=== PATIENT | male | born 1965 | race Two or more races ===

== ENCOUNTER 2021-02-08 13:32 | Inpatient (IN) | payer MEDICAID, OTHER ==
[~2021-02-08] VITALS: Ht 165.1 cm; Wt 71.3 kg
[2021-02-08] MEDS ORDERED: methylPREDNISolone SOD SUCC 125 MG/2 ML VL IV ONE (14:00)
[2021-02-08 14:20] LABS: Basophils # (auto) 0.4 10 ^3/uL (0-0.2); Basophils % (auto) 5.5 % (0.0-2.0); Eosinophils # (auto) 0 10 ^3/uL (0-0.8); Eosinophils % (auto) 0.1 % (0.0-7.0); Hematocrit 42.7 % (41.0-53.0); Hemoglobin 14.7 g/dL (13.5-17.5); Lymphocytes # (auto) 0.7 10 ^3/uL (0.4-5.4); Lymphocytes % (auto) 8.8 % (10.0-50.0); Mean Corpuscular Hemoglobin 29.9 pg (28.0-32.0); Mean Corpuscular Hgb Conc. 34.5 g/dL (32.0-36.0); Mean Corpuscular Volume 86.7 fL (80.0-100.0); Monocytes # (auto) 0.5 10 ^3/uL (0-1.3); Neutrophils # (auto) 6.4 10 ^3/uL (1.6-8.6); Neutrophils % (auto) 79.6 % (37.0-80.0); Nucleated Red Blood Cells % 0.1 %; Red Blood Cells 4.93 10^6/uL (4.5-5.90)
[2021-02-08 14:57] LABS: Albumin 2.4 g/dL (3.4-5.0); Calcium 8.1 mg/dL (8.5-10.1); Potassium 4.1 mmol/L (3.5-5.1)
[2021-02-08 15:08] LABS: Bilirubin, Total 2.3 mg/dL (0.2-1.0); CRP High Sensitivity 15.2 mg/dL (< 0.3); Total Protein 6.8 g/dL (6.4-8.2)
[2021-02-08 15:13] LABS: BUN/Creatinine Ratio 24.7
[2021-02-08] MEDS ORDERED: REMDESIVIR PER PHARMACY 0 ML IV SCH ×2 (15:15→18:30)
[2021-02-08] MEDS ORDERED: AZITHROMYCIN 500MG/ 250ML 250 ML IV ONE (15:15)
[2021-02-08] MEDS ORDERED: DEXTROSE (50%) 50ML SYRG IV PRN (15:15)
[2021-02-08] MEDS ORDERED: NITROGLYCERIN 0.4 MG SL TAB SL PRN ×2 (15:15→18:30)
[2021-02-08] MEDS ORDERED: MORPHINE SULFATE INJECTION 2 MG/ML SYRG IV PRN ×3 (15:15→18:30)
[2021-02-08] MEDS ORDERED: REMDESIVIR 200 MG in NS 210ml LOADING DOSE ADULT IV ONE (17:00)
[2021-02-08] MEDS: ACCU-CHEK COMFORT CURVE STRIP VI SCH ×2 (17:20→22:16)
[2021-02-08] MEDS: InsuLIN REG 1unit/0.01ml Soln (100units/ml) SC SCH (17:21)
[2021-02-08 17:29] VITALS: BP 140/73
[2021-02-08] MEDS ORDERED: METF500S PO (17:58)
[2021-02-08] MEDS ORDERED: ENAL2.5T7 PO (17:58)
[2021-02-08] MEDS ORDERED: LORazepam 0.5 MG TAB PO PRN (18:30)
[2021-02-08] MEDS ORDERED: ALUM & MAG HYDROX-SIMETH LIQ(MAALOX) 30 ML PO PRN (18:30)
[2021-02-08] MEDS ORDERED: DOCUSATE SOD 100 MG CAP PO PRN (18:30)
[2021-02-08] MEDS ORDERED: HYDROcodone-ACET 5/325MG TAB PO PRN (18:30)
[2021-02-08] MEDS ORDERED: ACETAMINOPHEN 500 MG TAB PO PRN (18:30)
[2021-02-08] MEDS ORDERED: ONDANSETRON HCL 4 MG/2 ML VIAL IV PRN (18:30)
[2021-02-08 19:31] LABS: Urine Bacteria NONE SEEN /hpf (None Seen); Urine Blood Negative /uL (Negative); Urine Hyaline Cast MOD /lpf (0 - 2); Urine Mucus FEW (None Seen); Urine Specific Gravity 1.024 (1.001-1.035); Urine WBC 2 /hpf (0 - 3)
[2021-02-08 22:00] VITALS: BP 121/69
[2021-02-08] MEDS ORDERED: TOCILIZUMAB 400 MG in SODIUM CHL 0.9% 80 ML IV SCH (22:00)
[2021-02-08] MEDS ORDERED: InsuLIN REG 1unit/0.01ml Soln (100units/ml) SC SCH (22:00)
[2021-02-08] MEDS: ENOXAPARIN SOD 40 MG/0.4 ML SYRINGE SC SCH (22:16)
[2021-02-08] MEDS: FAMOTIDINE (10MG/ML) 2ML VL IV SCH (22:17)
[2021-02-08] MEDS: DOXYCYCLINE 100MG/250ML 250 ML IV SCH (22:17)
[2021-02-08] MEDS: ATORVASTATIN 20 MG TAB PO SCH (22:17)
[2021-02-08 23:30] LABS: Basophils # (auto) 0 10 ^3/uL (0-0.2); Basophils % (auto) 0.1 % (0.0-2.0); Eosinophils # (auto) 0 10 ^3/uL (0-0.8); Hematocrit 44.6 % (41.0-53.0); Hemoglobin 15.2 g/dL (13.5-17.5); Lymphocytes # (auto) 0.3 10 ^3/uL (0.4-5.4); Lymphocytes % (auto) 6.1 % (10.0-50.0); Mean Corpuscular Hemoglobin 29.9 pg (28.0-32.0); Mean Corpuscular Volume 87.9 fL (80.0-100.0); Monocytes # (auto) 0.2 10 ^3/uL (0-1.3); Monocytes % (auto) 3.9 % (0.0-12.0); Neutrophils # (auto) 4.9 10 ^3/uL (1.6-8.6); Neutrophils % (auto) 89.9 % (37.0-80.0); Red Blood Cells 5.07 10^6/uL (4.5-5.90); Red Cell Distribution Width 12.9 % (11.8-14.3); White Blood Cell 5.4 10^3/uL (4.4-10.8)
[2021-02-08 23:53] LABS: Albumin 2.2 g/dL (3.4-5.0); Calcium 8.2 mg/dL (8.5-10.1); Magnesium 2.9 mg/dL (1.6-2.6); Potassium 4.4 mmol/L (3.5-5.1)
[2021-02-09 00:07] LABS: Bilirubin, Total 1.9 mg/dL (0.2-1.0); CRP High Sensitivity 16.5 mg/dL (< 0.3); Total Protein 6.7 g/dL (6.4-8.2)
[2021-02-09] MEDS ORDERED: InsuLIN REG 1unit/0.01ml Soln (100units/ml) IV ONE (00:15)
[2021-02-09 00:21] LABS: BUN/Creatinine Ratio 27.1
[2021-02-09 00:30] LABS: Thyroid Stimulating Hormone 0.08 uIU/mL (0.358-3.74)
[2021-02-09 05:00] VITALS: BP 124/76
[2021-02-09] MEDS: FUROSEMIDE 20 MG/2 ML VIAL IV SCH ×2 (06:17→17:20)
[2021-02-09] MEDS: ACCU-CHEK COMFORT CURVE STRIP VI SCH ×5 (06:17→22:12)
[2021-02-09] MEDS: InsuLIN REG 1unit/0.01ml Soln (100units/ml) SC SCH ×5 (06:18→22:15)
[2021-02-09 06:38] LABS: Basophils # (auto) 0 10 ^3/uL (0-0.2); Basophils % (auto) 0.2 % (0.0-2.0); Eosinophils # (auto) 0 10 ^3/uL (0-0.8); Hematocrit 44.4 % (41.0-53.0); Hemoglobin 15.5 g/dL (13.5-17.5); Lymphocytes # (auto) 0.5 10 ^3/uL (0.4-5.4); Lymphocytes % (auto) 8.3 % (10.0-50.0); Mean Corpuscular Hemoglobin 30.3 pg (28.0-32.0); Mean Corpuscular Volume 86.7 fL (80.0-100.0); Monocytes # (auto) 0.6 10 ^3/uL (0-1.3); Neutrophils # (auto) 5.1 10 ^3/uL (1.6-8.6); Neutrophils % (auto) 81.5 % (37.0-80.0); Nucleated Red Blood Cells % 0.1 %; Red Blood Cells 5.12 10^6/uL (4.5-5.90); Red Cell Distribution Width 12.6 % (11.8-14.3); White Blood Cell 6.2 10^3/uL (4.4-10.8)
[2021-02-09 06:54] LABS: Potassium 3.8 mmol/L (3.5-5.1)
[2021-02-09 06:59] LABS: Albumin 2.3 g/dL (3.4-5.0); BUN/Creatinine Ratio 29.8; Calcium 8.5 mg/dL (8.5-10.1)
[2021-02-09 07:02] LABS: Bilirubin, Total 1.8 mg/dL (0.2-1.0)
[2021-02-09 08:00] VITALS: BP 126/81
[2021-02-09] MEDS: DexAMETHasone SOD PHOS 10MG/1ML VIAL INJ IV SCH (09:18)
[2021-02-09] MEDS: FAMOTIDINE (10MG/ML) 2ML VL IV SCH ×2 (09:18→22:11)
[2021-02-09] MEDS: ASPirin 81 mg TAB PO SCH (09:19)
[2021-02-09] MEDS: DOXYCYCLINE 100MG/250ML 250 ML IV SCH ×2 (09:19→22:11)
[2021-02-09] MEDS: ZINC SULFATE 220mg CAP or TAB PO SCH (09:19)
[2021-02-09] MEDS: BENAZEPRIL HCL 10 MG TAB PO SCH (09:19)
[2021-02-09] MEDS: CHOLECALCIFEROL (VITD3) 2,000 UNIT CAP/TAB PO SCH (09:20)
[2021-02-09] MEDS: IVERMECTIN 3 MG TAB PO SCH (09:20)
[2021-02-09] MEDS: ENOXAPARIN SOD 40 MG/0.4 ML SYRINGE SC SCH ×2 (09:20→22:12)
[2021-02-09] MEDS: ALBUTEROL SULF HFA 90MCG INH 200DOSE IN PRN ×2 (09:43→20:54)
[2021-02-09] MEDS: BUDESONIDE (INHALATION) 180 MCG IH IN SCH ×2 (09:43→20:53)
[2021-02-09] MEDS ORDERED: SODIUM CHLORIDE 0.9% 1,000 ML IV ONE ×2 (11:15→13:00)
[2021-02-09] MEDS ORDERED: DEXTROSE (50%) 50ML SYRG IV PRN (11:15)
[2021-02-09 11:48] LABS: Urine Bacteria NONE SEEN /hpf (None Seen); Urine Blood Negative /uL (Negative); Urine Hyaline Cast FEW /lpf (0 - 2); Urine Mucus FEW (None Seen); Urine Specific Gravity 1.023 (1.001-1.035); Urine WBC 2 /hpf (0 - 3)
[2021-02-09 12:02] LABS: Amphetamine Screen, Urine NEGATIVE (NEGATIVE); Barbiturate Scree,Urine NEGATIVE (NEGATIVE); Benzodiazephine Screen, Urine NEGATIVE (NEGATIVE); Cannabinoid Screen, Urine NEGATIVE (NEGATIVE); Cocaine Screen, Urine NEGATIVE (NEGATIVE); Opiate Scree,Urine NEGATIVE (NEGATIVE); Phencyclidine Screen, Urine NEGATIVE (NEGATIVE)
[2021-02-09 12:34] LABS: BUN/Creatinine Ratio 32.7; Calcium 7.8 mg/dL (8.5-10.1); Magnesium 2.5 mg/dL (1.6-2.6); Phosphorus 2.9 mg/dL (2.5-4.90); Potassium 3.6 mmol/L (3.5-5.1)
[2021-02-09 12:36] LABS: Bilirubin, Total 1.5 mg/dL (0.2-1.0); Total Protein 6.3 g/dL (6.4-8.2)
[2021-02-09] MEDS ORDERED: InsuLIN REG 1unit/0.01ml Soln (100units/ml) SC ONE (13:00)
[2021-02-09 13:07] VITALS: BP 99/56
[2021-02-09] MEDS: POTASSIUM CHL 20 Meq TABLET PO SCH ×2 (13:31→22:12)
[2021-02-09 14:13] VITALS: BP 99/56
[2021-02-09] MEDS: SODIUM CHLORIDE 0.9% 1,000 ML IV SCH (14:38)
[2021-02-09] MEDS: REMDESIVIR 100mg 100 MG in SODIUM CHL 0.9% 230 ML IV SCH (15:29)
[2021-02-09 17:17] VITALS: BP 107/61
[2021-02-09 22:00] VITALS: BP 118/64
[2021-02-09] MEDS: ATORVASTATIN 20 MG TAB PO SCH (22:12)
[2021-02-10 05:00] VITALS: BP 127/70
[2021-02-10] MEDS: FUROSEMIDE 20 MG/2 ML VIAL IV SCH ×2 (05:42→17:12)
[2021-02-10] MEDS: ACCU-CHEK COMFORT CURVE STRIP VI SCH ×4 (05:42→22:05)
[2021-02-10] MEDS: InsuLIN REG 1unit/0.01ml Soln (100units/ml) SC SCH ×4 (05:42→22:05)
[2021-02-10] MEDS: SODIUM CHLORIDE 0.9% 1,000 ML IV SCH ×2 (05:49→16:40)
[2021-02-10 05:57] LABS: Basophils # (auto) 0 10 ^3/uL (0-0.2); Basophils % (auto) 0.2 % (0.0-2.0); Eosinophils # (auto) 0 10 ^3/uL (0-0.8); Hemoglobin 13.6 g/dL (13.5-17.5); Lymphocytes # (auto) 0.6 10 ^3/uL (0.4-5.4); Lymphocytes % (auto) 5.9 % (10.0-50.0); Mean Corpuscular Hemoglobin 30.1 pg (28.0-32.0); Mean Corpuscular Hgb Conc. 34.9 g/dL (32.0-36.0); Mean Corpuscular Volume 86.2 fL (80.0-100.0); Monocytes # (auto) 0.7 10 ^3/uL (0-1.3); Monocytes % (auto) 6.2 % (0.0-12.0); Neutrophils # (auto) 9.6 10 ^3/uL (1.6-8.6); Neutrophils % (auto) 87.7 % (37.0-80.0); Red Blood Cells 4.53 10^6/uL (4.5-5.90); Red Cell Distribution Width 12.6 % (11.8-14.3)
[2021-02-10 06:09] LABS: Alanine Aminotransferase 30 U/L (16-61); Albumin 2.1 g/dL (3.4-5.0); Anion Gap 5 (5-15); Blood Urea Nitrogen 24 mg/dL (7-18); Calcium 7.8 mg/dL (8.5-10.1); Carbon Dioxide 26 mmol/L (21-32); Chloride 108 mmol/L (98-107); Glucose 232 mg/dL (74-106); Magnesium 2.5 mg/dL (1.6-2.6); Sodium 139 mmol/L (136-145)
[2021-02-10 06:15] LABS: Alkaline Phosphatase 68 U/L (45-117); Aspartate Aminotransferase 25 U/L (15-37); BUN/Creatinine Ratio 34.8; GFR African American 154 mL/min; GFR Non-African American 127 mL/min; Phosphorus 2.1 mg/dL (2.5-4.90)
[2021-02-10 06:22] LABS: INR 1.08 (0.9-1.15); Partial Thromboplastin Time 38.9 sec (23.6-33.0)
[2021-02-10] MEDS: ALBUTEROL SULF HFA 90MCG INH 200DOSE IN PRN (07:50)
[2021-02-10] MEDS: BUDESONIDE (INHALATION) 180 MCG IH IN SCH ×2 (07:50→21:45)
[2021-02-10 09:00] VITALS: BP 149/92
[2021-02-10] MEDS: DexAMETHasone SOD PHOS 10MG/1ML VIAL INJ IV SCH (09:29)
[2021-02-10] MEDS: DOXYCYCLINE 100MG/250ML 250 ML IV SCH ×2 (09:29→22:03)
[2021-02-10] MEDS: FAMOTIDINE (10MG/ML) 2ML VL IV SCH ×2 (09:29→22:03)
[2021-02-10] MEDS: ZINC SULFATE 220mg CAP or TAB PO SCH (09:30)
[2021-02-10] MEDS: ASPirin 81 mg TAB PO SCH (09:30)
[2021-02-10] MEDS: POTASSIUM CHL 20 Meq TABLET PO SCH ×2 (09:30→22:03)
[2021-02-10] MEDS: BENAZEPRIL HCL 10 MG TAB PO SCH (09:30)
[2021-02-10] MEDS: CHOLECALCIFEROL (VITD3) 2,000 UNIT CAP/TAB PO SCH (09:31)
[2021-02-10] MEDS: ENOXAPARIN SOD 40 MG/0.4 ML SYRINGE SC SCH ×2 (09:31→22:04)
[2021-02-10] MEDS: IVERMECTIN 3 MG TAB PO SCH (09:31)
[2021-02-10 13:00] VITALS: BP 109/69
[2021-02-10] MEDS: REMDESIVIR 100mg 100 MG in SODIUM CHL 0.9% 230 ML IV SCH (15:36)
[2021-02-10 16:50] VITALS: BP 115/62
[2021-02-10] MEDS: ATORVASTATIN 20 MG TAB PO SCH (22:03)
[2021-02-10] MEDS: INSULIN LANTUS (GLARGINE) 1 /0.01ml (100units/ml) SC SCH (22:05)
[2021-02-10 22:09] VITALS: BP 163/83
[2021-02-10] MEDS: hydrALAZINE HCL 20 MG/ML VL IV PRN (22:27)
[2021-02-11] MEDS: SODIUM CHLORIDE 0.9% 1,000 ML IV SCH (05:00)
[2021-02-11 05:09] VITALS: BP 143/76
[2021-02-11] MEDS: ACCU-CHEK COMFORT CURVE STRIP VI SCH ×3 (05:43→17:29)
[2021-02-11] MEDS: InsuLIN REG 1unit/0.01ml Soln (100units/ml) SC SCH ×3 (05:43→17:37)
[2021-02-11] MEDS: FUROSEMIDE 20 MG/2 ML VIAL IV SCH ×2 (05:44→17:45)
[2021-02-11] MEDS: ALBUTEROL SULF HFA 90MCG INH 200DOSE IN PRN ×2 (06:47→21:11)
[2021-02-11] MEDS: BUDESONIDE (INHALATION) 180 MCG IH IN SCH ×2 (06:47→21:11)
[2021-02-11 06:57] LABS: Basophils # (auto) 0 10 ^3/uL (0-0.2); Eosinophils # (auto) 0 10 ^3/uL (0-0.8); Hematocrit 43.4 % (41.0-53.0); Hemoglobin 15.2 g/dL (13.5-17.5); Lymphocytes # (auto) 0.9 10 ^3/uL (0.4-5.4); Lymphocytes % (auto) 8.9 % (10.0-50.0); Mean Corpuscular Hemoglobin 30.7 pg (28.0-32.0); Mean Corpuscular Hgb Conc. 35.1 g/dL (32.0-36.0); Mean Corpuscular Volume 87.3 fL (80.0-100.0); Monocytes # (auto) 0.3 10 ^3/uL (0-1.3); Monocytes % (auto) 2.9 % (0.0-12.0); Neutrophils # (auto) 9.3 10 ^3/uL (1.6-8.6); Neutrophils % (auto) 88.2 % (37.0-80.0); Nucleated Red Blood Cells % 0.1 %; Red Blood Cells 4.97 10^6/uL (4.5-5.90); Red Cell Distribution Width 13.1 % (11.8-14.3); White Blood Cell 10.5 10^3/uL (4.4-10.8)
[2021-02-11 07:13] LABS: INR 1.09 (0.9-1.15)
[2021-02-11 07:17] LABS: Chloride 105 mmol/L (98-107); Potassium 4.1 mmol/L (3.5-5.1); Sodium 138 mmol/L (136-145)
[2021-02-11 07:26] LABS: Alanine Aminotransferase 33 U/L (16-61); Albumin 2.5 g/dL (3.4-5.0); Alkaline Phosphatase 90 U/L (45-117); Anion Gap 4 (5-15); Aspartate Aminotransferase 32 U/L (15-37); BUN/Creatinine Ratio 32.8; Bilirubin, Total 1.1 mg/dL (0.2-1.0); Blood Urea Nitrogen 22 mg/dL (7-18); Calcium 8.4 mg/dL (8.5-10.1); Carbon Dioxide 29 mmol/L (21-32); GFR African American 159 mL/min; GFR Non-African American 131 mL/min; Glucose 112 mg/dL (74-106); Magnesium 2.3 mg/dL (1.6-2.6); Phosphorus 2.3 mg/dL (2.5-4.90); Total Protein 6.8 g/dL (6.4-8.2)
[2021-02-11 08:00] VITALS: BP 141/79
[2021-02-11] MEDS: FAMOTIDINE (10MG/ML) 2ML VL IV SCH ×2 (10:56→21:25)
[2021-02-11] MEDS: DexAMETHasone SOD PHOS 10MG/1ML VIAL INJ IV SCH (10:56)
[2021-02-11] MEDS: ASPirin 81 mg TAB PO SCH (10:57)
[2021-02-11] MEDS: DOXYCYCLINE 100MG/250ML 250 ML IV SCH (10:57)
[2021-02-11] MEDS: ZINC SULFATE 220mg CAP or TAB PO SCH (10:57)
[2021-02-11] MEDS: POTASSIUM CHL 20 Meq TABLET PO SCH ×2 (10:57→21:26)
[2021-02-11] MEDS: CHOLECALCIFEROL (VITD3) 2,000 UNIT CAP/TAB PO SCH (10:58)
[2021-02-11] MEDS: BENAZEPRIL HCL 10 MG TAB PO SCH (10:58)
[2021-02-11] MEDS: IVERMECTIN 3 MG TAB PO SCH (10:58)
[2021-02-11] MEDS: ENOXAPARIN SOD 40 MG/0.4 ML SYRINGE SC SCH ×2 (10:59→21:25)
[2021-02-11] MEDS ORDERED: levoFLOXacin 750MG 150 ML IV ONE (11:30)
[2021-02-11 12:00] VITALS: BP 130/77
[2021-02-11] MEDS: INSULIN LANTUS (GLARGINE) 1 /0.01ml (100units/ml) SC SCH ×2 (12:03→21:27)
[2021-02-11] MEDS ORDERED: guaiFENesin-DM 100/10mg/5ml SYR PO PRN (15:00)
[2021-02-11] MEDS: REMDESIVIR 100mg 100 MG in SODIUM CHL 0.9% 230 ML IV SCH (15:18)
[2021-02-11 16:00] VITALS: BP 145/71
[2021-02-11] MEDS: ATORVASTATIN 20 MG TAB PO SCH (21:26)
[2021-02-11 22:00] VITALS: BP 132/80
[2021-02-12] MEDS: ACCU-CHEK COMFORT CURVE STRIP VI SCH ×4 (00:39→17:44)
[2021-02-12] MEDS: InsuLIN REG 1unit/0.01ml Soln (100units/ml) SC SCH ×4 (00:41→17:43)
[2021-02-12 05:00] VITALS: BP 150/83
[2021-02-12] MEDS: FUROSEMIDE 20 MG/2 ML VIAL IV SCH ×2 (05:54→17:45)
[2021-02-12 06:07] LABS: Basophils # (auto) 0 10 ^3/uL (0-0.2); Basophils % (auto) 0.3 % (0.0-2.0); Eosinophils # (auto) 0 10 ^3/uL (0-0.8); Eosinophils % (auto) 0.2 % (0.0-7.0); Hematocrit 45.7 % (41.0-53.0); Hemoglobin 15.3 g/dL (13.5-17.5); Lymphocytes # (auto) 0.5 10 ^3/uL (0.4-5.4); Lymphocytes % (auto) 4.8 % (10.0-50.0); Mean Corpuscular Hemoglobin 29.9 pg (28.0-32.0); Mean Corpuscular Hgb Conc. 33.5 g/dL (32.0-36.0); Mean Corpuscular Volume 89.3 fL (80.0-100.0); Monocytes # (auto) 0.1 10 ^3/uL (0-1.3); Monocytes % (auto) 1.3 % (0.0-12.0); Neutrophils # (auto) 9.6 10 ^3/uL (1.6-8.6); Neutrophils % (auto) 93.4 % (37.0-80.0); Nucleated Red Blood Cells % 0.1 %; Red Blood Cells 5.12 10^6/uL (4.5-5.90); Red Cell Distribution Width 12.8 % (11.8-14.3); White Blood Cell 10.2 10^3/uL (4.4-10.8)
[2021-02-12 06:24] LABS: Albumin 2.2 g/dL (3.4-5.0); Calcium 8.8 mg/dL (8.5-10.1); Potassium 4.2 mmol/L (3.5-5.1)
[2021-02-12] MEDS: BUDESONIDE (INHALATION) 180 MCG IH IN SCH ×2 (06:28→21:45)
[2021-02-12] MEDS: ALBUTEROL SULF HFA 90MCG INH 200DOSE IN PRN ×2 (06:28→21:45)
[2021-02-12 06:29] LABS: BUN/Creatinine Ratio 33.3; Bilirubin, Total 1.2 mg/dL (0.2-1.0); Total Protein 6.8 g/dL (6.4-8.2)
[2021-02-12] MEDS: INSULIN LANTUS (GLARGINE) 1 /0.01ml (100units/ml) SC SCH ×2 (07:57→21:38)
[2021-02-12] MEDS: DexAMETHasone SOD PHOS 10MG/1ML VIAL INJ IV SCH (07:57)
[2021-02-12] MEDS: ZINC SULFATE 220mg CAP or TAB PO SCH (07:58)
[2021-02-12] MEDS: FAMOTIDINE (10MG/ML) 2ML VL IV SCH ×2 (07:58→21:27)
[2021-02-12] MEDS: levoFLOXacin 750MG 150 ML IV SCH (07:58)
[2021-02-12] MEDS: ASPirin 81 mg TAB PO SCH (07:58)
[2021-02-12] MEDS: BENAZEPRIL HCL 10 MG TAB PO SCH (07:59)
[2021-02-12] MEDS: POTASSIUM CHL 20 Meq TABLET PO SCH ×2 (07:59→21:27)
[2021-02-12] MEDS: IVERMECTIN 3 MG TAB PO SCH (07:59)
[2021-02-12] MEDS: ENOXAPARIN SOD 40 MG/0.4 ML SYRINGE SC SCH ×2 (08:00→21:27)
[2021-02-12] MEDS: CHOLECALCIFEROL (VITD3) 2,000 UNIT CAP/TAB PO SCH (08:00)
[2021-02-12 09:00] VITALS: BP 141/79
[2021-02-12 12:59] VITALS: BP 96/51
[2021-02-12] MEDS: REMDESIVIR 100mg 100 MG in SODIUM CHL 0.9% 230 ML IV SCH (16:15)
[2021-02-12 17:00] VITALS: BP 98/52
[2021-02-12] MEDS: ATORVASTATIN 20 MG TAB PO SCH (21:27)
[2021-02-12 22:00] VITALS: BP 110/66
[2021-02-13] VITALS (55 sets, daily range): BP systolic 51–179; BP diastolic 29–107
[2021-02-13] MEDS: InsuLIN REG 1unit/0.01ml Soln (100units/ml) SC SCH ×4 (00:09→23:56)
[2021-02-13] MEDS: ACCU-CHEK COMFORT CURVE STRIP VI SCH ×4 (00:11→23:54)
[2021-02-13] MEDS: FUROSEMIDE 20 MG/2 ML VIAL IV SCH (06:13)
[2021-02-13] MEDS: ALBUTEROL SULF HFA 90MCG INH 200DOSE IN PRN (08:11)
[2021-02-13] MEDS: BUDESONIDE (INHALATION) 180 MCG IH IN SCH ×2 (08:11→22:00)
[2021-02-13] MEDS: ASPirin 81 mg TAB PO SCH (09:20)
[2021-02-13] MEDS: ZINC SULFATE 220mg CAP or TAB PO SCH (09:20)
[2021-02-13] MEDS: IVERMECTIN 3 MG TAB PO SCH (09:20)
[2021-02-13] MEDS: FAMOTIDINE (10MG/ML) 2ML VL IV SCH ×2 (09:20→21:24)
[2021-02-13] MEDS: ENOXAPARIN SOD 40 MG/0.4 ML SYRINGE SC SCH ×2 (09:20→21:23)
[2021-02-13] MEDS: CHOLECALCIFEROL (VITD3) 2,000 UNIT CAP/TAB PO SCH (09:21)
[2021-02-13] MEDS: POTASSIUM CHL 20 Meq TABLET PO SCH ×2 (09:24→21:23)
[2021-02-13] MEDS: levoFLOXacin 750MG 150 ML IV SCH (09:49)
[2021-02-13] MEDS: INSULIN LANTUS (GLARGINE) 1 /0.01ml (100units/ml) SC SCH ×2 (09:49→22:01)
[2021-02-13] MEDS: DexAMETHasone SOD PHOS 10MG/1ML VIAL INJ IV SCH (09:49)
[2021-02-13] MEDS: ACETAMINOPHEN 325 MG TAB PO PRN (09:50)
[2021-02-13] MEDS: BENAZEPRIL HCL 10 MG TAB PO SCH (09:50)
[2021-02-13] MEDS ORDERED: ROCURONIUM 10MG/ML 10ML VIAL IV ONE (10:50)
[2021-02-13] MEDS ORDERED: ETOMIDATE (2MG/ML) 20ML VIAL IV ONE (10:50)
[2021-02-13] MEDS ORDERED: fentaNYL Drip 2500mCg/250mlNS 250 ML IV ONE (11:26)
[2021-02-13] MEDS ORDERED: PROPOFOL 100 ML IV ONE (11:27)
[2021-02-13] MEDS: MIDAZOLAM DRIP 50 mg/50mL 50 ML IV SCH (12:00)
[2021-02-13] MEDS: PROPOFOL 100 ML IV SCH (12:00)
[2021-02-13] MEDS: fentaNYL Drip 2500mCg/250mlNS 250 ML IV SCH ×2 (12:00→22:10)
[2021-02-13] MEDS ORDERED: NOREPINEPHRINE 8 MG/250ML KIT 250 ML IV ONE (12:57)
[2021-02-13 15:46] LABS: Calcium 7.9 mg/dL (8.5-10.1); Potassium 5.1 mmol/L (3.5-5.1)
[2021-02-13 15:50] LABS: BUN/Creatinine Ratio 29.7
[2021-02-13] MEDS: NOREPINEPHRINE 8 MG/250ML KIT 250 ML IV SCH (21:12)
[2021-02-13] MEDS: ATORVASTATIN 20 MG TAB PO SCH (21:23)
[2021-02-13] MEDS: SODIUM CHLOR 0.9% PF (SALINE LOCK) 10ML VIAL/SYR IV SCH (21:24)
[2021-02-14] VITALS (100 sets, daily range): BP systolic 83–129; BP diastolic 45–71
[2021-02-14 00:40] LABS: Potassium 5.3 mmol/L (3.5-5.1)
[2021-02-14 00:42] LABS: Magnesium 2.6 mg/dL (1.6-2.6)
[2021-02-14] MEDS: MIDAZOLAM DRIP 50 mg/50mL 50 ML IV SCH ×3 (01:19→18:33)
[2021-02-14 01:31] LABS: Basophils # (auto) 0 10 ^3/uL (0-0.2); Basophils % (auto) 0.1 % (0.0-2.0); Eosinophils # (auto) 0 10 ^3/uL (0-0.8); Hematocrit 41.4 % (41.0-53.0); Hemoglobin 14.2 g/dL (13.5-17.5); Lymphocytes # (auto) 0.2 10 ^3/uL (0.4-5.4); Mean Corpuscular Hemoglobin 30.8 pg (28.0-32.0); Mean Corpuscular Hgb Conc. 34.4 g/dL (32.0-36.0); Mean Corpuscular Volume 89.6 fL (80.0-100.0); Monocytes # (auto) 0.3 10 ^3/uL (0-1.3); White Blood Cell 12.6 10^3/uL (4.4-10.8)
[2021-02-14 01:33] LABS: Lymphocytes % (auto) 1.7 % (10.0-50.0); Monocytes % (auto) 2.5 % (0.0-12.0); Neutrophils % (auto) 95.7 % (37.0-80.0); Red Blood Cells 4.63 10^6/uL (4.5-5.90)
[2021-02-14 01:38] LABS: Anion Gap 11 (5-15); BUN/Creatinine Ratio 29.8; Blood Urea Nitrogen 50 mg/dL (7-18); Calcium 8.4 mg/dL (8.5-10.1); Carbon Dioxide 25 mmol/L (21-32); Chloride 99 mmol/L (98-107); GFR African American 55 mL/min; GFR Non-African American 45 mL/min; Glucose 296 mg/dL (74-106); Sodium 135 mmol/L (136-145)
[2021-02-14] MEDS: PROPOFOL 100 ML IV SCH ×3 (04:33→18:33)
[2021-02-14] MEDS: ACCU-CHEK COMFORT CURVE STRIP VI SCH ×3 (05:59→18:19)
[2021-02-14] MEDS: InsuLIN REG 1unit/0.01ml Soln (100units/ml) SC SCH ×3 (06:00→18:18)
[2021-02-14] MEDS ORDERED: SODIUM CHLORIDE 0.9% 500 ML IV ONE (09:00)
[2021-02-14] MEDS: ZINC SULFATE 220mg CAP or TAB PO SCH (10:03)
[2021-02-14] MEDS: DexAMETHasone SOD PHOS 10MG/1ML VIAL INJ IV SCH (10:04)
[2021-02-14] MEDS: ENOXAPARIN SOD 40 MG/0.4 ML SYRINGE SC SCH ×2 (10:04→21:21)
[2021-02-14] MEDS: FAMOTIDINE (10MG/ML) 2ML VL IV SCH ×2 (10:04→21:20)
[2021-02-14] MEDS: CHOLECALCIFEROL (VITD3) 2,000 UNIT CAP/TAB PO SCH (10:04)
[2021-02-14] MEDS: ASPirin 81 mg TAB PO SCH (10:07)
[2021-02-14 10:43] LABS: Basophils # (auto) 0 10 ^3/uL (0-0.2); Eosinophils # (auto) 0 10 ^3/uL (0-0.8); Eosinophils % (auto) 0.1 % (0.0-7.0); Hematocrit 36.8 % (41.0-53.0); Hemoglobin 12.9 g/dL (13.5-17.5); Lymphocytes # (auto) 0.4 10 ^3/uL (0.4-5.4); Lymphocytes % (auto) 3.2 % (10.0-50.0); Mean Corpuscular Hemoglobin 31.6 pg (28.0-32.0); Mean Corpuscular Volume 90.3 fL (80.0-100.0); Monocytes # (auto) 0.3 10 ^3/uL (0-1.3); Monocytes % (auto) 2.5 % (0.0-12.0); Neutrophils # (auto) 11.1 10 ^3/uL (1.6-8.6); Neutrophils % (auto) 94.2 % (37.0-80.0); Nucleated Red Blood Cells % 0.1 %; Red Blood Cells 4.08 10^6/uL (4.5-5.90); Red Cell Distribution Width 13.2 % (11.8-14.3); White Blood Cell 11.8 10^3/uL (4.4-10.8)
[2021-02-14] MEDS: SODIUM CHLORIDE 0.9% 1,000 ML IV SCH (13:53)
[2021-02-14] MEDS: SODIUM CHLOR 0.9% PF (SALINE LOCK) 10ML VIAL/SYR IV SCH ×2 (13:54→21:20)
[2021-02-14] MEDS: METOCLOPRAMIDE HCL 5MG/ml INJ 2ml VIAL IV SCH ×2 (13:57→21:20)
[2021-02-14] MEDS: MEROPENEM 1GM IVPB 100 ML IV SCH (13:58)
[2021-02-14] MEDS: INSULIN LANTUS (GLARGINE) 1 /0.01ml (100units/ml) SC SCH ×2 (14:01→21:49)
[2021-02-14 14:37] LABS: BUN/Creatinine Ratio 25.5; Potassium 5.3 mmol/L (3.5-5.1)
[2021-02-14 14:42] LABS: Urine Bacteria FEW /hpf (None Seen); Urine Blood TRACE /uL (Negative); Urine Mucus FEW (None Seen); Urine Specific Gravity 1.019 (1.001-1.035); Urine WBC 2 /hpf (0 - 3)
[2021-02-14 14:43] LABS: Urine Hyaline Cast FEW /lpf (0 - 2)
[2021-02-14] MEDS ORDERED: FUROSEMIDE 100 MG/10ML VIAL IV ONE (18:30)
[2021-02-14] MEDS: NOREPINEPHRINE 8 MG/250ML KIT 250 ML IV SCH (19:30)
[2021-02-14] MEDS: ACETAMINOPHEN 325 MG TAB PO PRN (20:26)
[2021-02-14] MEDS: fentaNYL Drip 2500mCg/250mlNS 250 ML IV SCH (21:20)
[2021-02-15] VITALS (107 sets, daily range): BP systolic 85–134; BP diastolic 42–68
[2021-02-15] MEDS: ACCU-CHEK COMFORT CURVE STRIP VI SCH ×5 (00:27→23:55)
[2021-02-15] MEDS: MIDAZOLAM DRIP 50 mg/50mL 50 ML IV SCH ×6 (00:53→20:06)
[2021-02-15] MEDS: SODIUM CHLORIDE 0.9% 1,000 ML IV SCH ×2 (02:08→20:06)
[2021-02-15] MEDS: MEROPENEM 1GM IVPB 100 ML IV SCH ×2 (02:10→14:00)
[2021-02-15] MEDS: NOREPINEPHRINE 8 MG/250ML KIT 250 ML IV SCH (02:57)
[2021-02-15 04:49] LABS: Basophils # (auto) 0 10 ^3/uL (0-0.2); Basophils % (auto) 0.2 % (0.0-2.0); Eosinophils # (auto) 0 10 ^3/uL (0-0.8); Eosinophils % (auto) 0.1 % (0.0-7.0); Hematocrit 38.5 % (41.0-53.0); Hemoglobin 12.8 g/dL (13.5-17.5); Lymphocytes # (auto) 0.2 10 ^3/uL (0.4-5.4); Lymphocytes % (auto) 1.7 % (10.0-50.0); Mean Corpuscular Hemoglobin 29.6 pg (28.0-32.0); Mean Corpuscular Hgb Conc. 33.3 g/dL (32.0-36.0); Mean Corpuscular Volume 89.1 fL (80.0-100.0); Monocytes # (auto) 0.3 10 ^3/uL (0-1.3); Monocytes % (auto) 2.1 % (0.0-12.0); Neutrophils # (auto) 11.8 10 ^3/uL (1.6-8.6); Neutrophils % (auto) 95.9 % (37.0-80.0); Red Blood Cells 4.32 10^6/uL (4.5-5.90); White Blood Cell 12.3 10^3/uL (4.4-10.8)
[2021-02-15 05:03] LABS: Calcium 8.1 mg/dL (8.5-10.1); Potassium 4.6 mmol/L (3.5-5.1)
[2021-02-15 05:05] LABS: BUN/Creatinine Ratio 25.2
[2021-02-15] MEDS: METOCLOPRAMIDE HCL 5MG/ml INJ 2ml VIAL IV SCH ×3 (05:23→21:40)
[2021-02-15] MEDS: InsuLIN REG 1unit/0.01ml Soln (100units/ml) SC SCH ×5 (05:46→23:56)
[2021-02-15] MEDS: PROPOFOL 100 ML IV SCH ×3 (07:13→20:55)
[2021-02-15] MEDS: ASPirin 81 mg TAB PO SCH (09:56)
[2021-02-15] MEDS: ZINC SULFATE 220mg CAP or TAB PO SCH (09:56)
[2021-02-15] MEDS: ENOXAPARIN SOD 40 MG/0.4 ML SYRINGE SC SCH ×2 (09:56→21:41)
[2021-02-15] MEDS: FAMOTIDINE (10MG/ML) 2ML VL IV SCH ×2 (09:56→21:41)
[2021-02-15] MEDS: DexAMETHasone SOD PHOS 10MG/1ML VIAL INJ IV SCH (09:56)
[2021-02-15] MEDS: CHOLECALCIFEROL (VITD3) 2,000 UNIT CAP/TAB PO SCH (09:57)
[2021-02-15] MEDS: INSULIN LANTUS (GLARGINE) 1 /0.01ml (100units/ml) SC SCH ×2 (09:58→22:23)
[2021-02-15] MEDS: SODIUM CHLOR 0.9% PF (SALINE LOCK) 10ML VIAL/SYR IV SCH ×2 (10:00→21:41)
[2021-02-15] MEDS: fentaNYL Drip 2500mCg/250mlNS 250 ML IV SCH ×2 (10:26→20:56)
[2021-02-15] MEDS: ACETAMINOPHEN 325 MG TAB PO PRN (15:01)
[2021-02-15] MEDS: TOCILIZUMAB 400 MG in SODIUM CHL 0.9% 80 ML IV SCH (18:03)
[2021-02-15] MEDS ORDERED: Glucerna 1.2 Cal 1Liter BOTTLE GT SCH (20:00)
[2021-02-16] VITALS (105 sets, daily range): BP systolic 70–164; BP diastolic 42–75
[2021-02-16] MEDS: MEROPENEM 1GM IVPB 100 ML IV SCH ×2 (01:52→13:36)
[2021-02-16 04:47] LABS: Basophils # (auto) 0.1 10 ^3/uL (0-0.2); Eosinophils # (auto) 0 10 ^3/uL (0-0.8); Hematocrit 35.6 % (41.0-53.0); Hemoglobin 11.8 g/dL (13.5-17.5); Lymphocytes # (auto) 0.2 10 ^3/uL (0.4-5.4); Lymphocytes % (auto) 2.7 % (10.0-50.0); Mean Corpuscular Hemoglobin 29.8 pg (28.0-32.0); Mean Corpuscular Hgb Conc. 33.1 g/dL (32.0-36.0); Mean Corpuscular Volume 90.1 fL (80.0-100.0); Monocytes # (auto) 0.2 10 ^3/uL (0-1.3); Monocytes % (auto) 2.2 % (0.0-12.0); Neutrophils # (auto) 6.7 10 ^3/uL (1.6-8.6); Neutrophils % (auto) 94.1 % (37.0-80.0); Red Blood Cells 3.95 10^6/uL (4.5-5.90); Red Cell Distribution Width 13.4 % (11.8-14.3); White Blood Cell 7.1 10^3/uL (4.4-10.8)
[2021-02-16 05:17] LABS: Potassium 5.3 mmol/L (3.5-5.1)
[2021-02-16 05:25] LABS: BUN/Creatinine Ratio 33.5; Calcium 8.4 mg/dL (8.5-10.1)
[2021-02-16] MEDS: METOCLOPRAMIDE HCL 5MG/ml INJ 2ml VIAL IV SCH ×3 (06:21→21:04)
[2021-02-16] MEDS: ACCU-CHEK COMFORT CURVE STRIP VI SCH ×3 (06:22→18:00)
[2021-02-16] MEDS: InsuLIN REG 1unit/0.01ml Soln (100units/ml) SC SCH ×3 (06:27→18:15)
[2021-02-16] MEDS: MIDAZOLAM DRIP 50 mg/50mL 50 ML IV SCH ×4 (08:04→18:00)
[2021-02-16] MEDS: ENOXAPARIN SOD 40 MG/0.4 ML SYRINGE SC SCH ×2 (09:56→21:05)
[2021-02-16] MEDS: FAMOTIDINE (10MG/ML) 2ML VL IV SCH ×2 (09:56→21:04)
[2021-02-16] MEDS: DexAMETHasone SOD PHOS 10MG/1ML VIAL INJ IV SCH (09:57)
[2021-02-16] MEDS: ZINC SULFATE 220mg CAP or TAB PO SCH (09:57)
[2021-02-16] MEDS: ASPirin 81 mg TAB PO SCH (09:57)
[2021-02-16] MEDS: SODIUM CHLOR 0.9% PF (SALINE LOCK) 10ML VIAL/SYR IV SCH ×2 (09:57→21:05)
[2021-02-16] MEDS: CHOLECALCIFEROL (VITD3) 2,000 UNIT CAP/TAB PO SCH (09:57)
[2021-02-16] MEDS: INSULIN LANTUS (GLARGINE) 1 /0.01ml (100units/ml) SC SCH ×2 (10:02→21:37)
[2021-02-16] MEDS ORDERED: FUROSEMIDE 40 MG/4 ML VIAL IV ONE (10:30)
[2021-02-16] MEDS: TOCILIZUMAB 400 MG in SODIUM CHL 0.9% 80 ML IV SCH (10:46)
[2021-02-16] MEDS: SODIUM CHLORIDE 0.9% 1,000 ML IV SCH (13:33)
[2021-02-16] MEDS: PROPOFOL 100 ML IV SCH (17:59)
[2021-02-16] MEDS: NOREPINEPHRINE 8 MG/250ML KIT 250 ML IV SCH (19:30)
[2021-02-17] VITALS (104 sets, daily range): BP systolic 83–145; BP diastolic 51–86
[2021-02-17] MEDS: ACCU-CHEK COMFORT CURVE STRIP VI SCH ×4 (00:48→18:00)
[2021-02-17] MEDS: InsuLIN REG 1unit/0.01ml Soln (100units/ml) SC SCH ×4 (00:52→18:00)
[2021-02-17] MEDS: MEROPENEM 1GM IVPB 100 ML IV SCH ×2 (01:53→13:54)
[2021-02-17 04:22] LABS: Basophils # (auto) 0 10 ^3/uL (0-0.2); Basophils % (auto) 0.4 % (0.0-2.0); Eosinophils # (auto) 0 10 ^3/uL (0-0.8); Eosinophils % (auto) 0.1 % (0.0-7.0); Hematocrit 37.6 % (41.0-53.0); Hemoglobin 12.2 g/dL (13.5-17.5); Lymphocytes # (auto) 0.4 10 ^3/uL (0.4-5.4); Lymphocytes % (auto) 4.5 % (10.0-50.0); Mean Corpuscular Hemoglobin 29.4 pg (28.0-32.0); Mean Corpuscular Hgb Conc. 32.5 g/dL (32.0-36.0); Mean Corpuscular Volume 90.4 fL (80.0-100.0); Monocytes # (auto) 0.4 10 ^3/uL (0-1.3); Monocytes % (auto) 4.4 % (0.0-12.0); Neutrophils # (auto) 7.2 10 ^3/uL (1.6-8.6); Neutrophils % (auto) 90.6 % (37.0-80.0); Red Blood Cells 4.16 10^6/uL (4.5-5.90); Red Cell Distribution Width 13.4 % (11.8-14.3); White Blood Cell 7.9 10^3/uL (4.4-10.8)
[2021-02-17 04:41] LABS: Calcium 8.8 mg/dL (8.5-10.1); Potassium 4.6 mmol/L (3.5-5.1)
[2021-02-17 04:44] LABS: BUN/Creatinine Ratio 47.3
[2021-02-17] MEDS: SODIUM CHLORIDE 0.9% 1,000 ML IV SCH ×2 (05:34→11:00)
[2021-02-17] MEDS: METOCLOPRAMIDE HCL 5MG/ml INJ 2ml VIAL IV SCH ×3 (05:35→22:22)
[2021-02-17] MEDS: SODIUM CHLOR 0.9% PF (SALINE LOCK) 10ML VIAL/SYR IV SCH ×2 (10:00→22:23)
[2021-02-17] MEDS: FAMOTIDINE (10MG/ML) 2ML VL IV SCH ×2 (10:00→22:22)
[2021-02-17] MEDS: INSULIN LANTUS (GLARGINE) 1 /0.01ml (100units/ml) SC SCH ×2 (10:00→22:00)
[2021-02-17] MEDS: DexAMETHasone SOD PHOS 10MG/1ML VIAL INJ IV SCH (10:00)
[2021-02-17] MEDS: ZINC SULFATE 220mg CAP or TAB PO SCH (10:01)
[2021-02-17] MEDS: ENOXAPARIN SOD 40 MG/0.4 ML SYRINGE SC SCH ×2 (10:01→22:22)
[2021-02-17] MEDS: ASPirin 81 mg TAB PO SCH (10:01)
[2021-02-17] MEDS: FUROSEMIDE 40 MG/4 ML VIAL IV SCH (10:01)
[2021-02-17] MEDS: CHOLECALCIFEROL (VITD3) 2,000 UNIT CAP/TAB PO SCH (10:01)
[2021-02-17] MEDS: MIDAZOLAM DRIP 50 mg/50mL 50 ML IV SCH ×4 (10:36→22:00)
[2021-02-17] MEDS: fentaNYL Drip 2500mCg/250mlNS 250 ML IV SCH ×2 (11:05→23:00)
[2021-02-17] MEDS: NOREPINEPHRINE 8 MG/250ML KIT 250 ML IV SCH (19:30)
[2021-02-18] VITALS (106 sets, daily range): BP systolic 82–165; BP diastolic 55–84
[2021-02-18] MEDS: ACCU-CHEK COMFORT CURVE STRIP VI SCH ×3 (00:22→12:12)
[2021-02-18] MEDS: InsuLIN REG 1unit/0.01ml Soln (100units/ml) SC SCH ×3 (00:25→12:00)
[2021-02-18] MEDS: MIDAZOLAM DRIP 50 mg/50mL 50 ML IV SCH ×6 (01:00→20:00)
[2021-02-18] MEDS: MEROPENEM 1GM IVPB 100 ML IV SCH ×2 (02:22→13:44)
[2021-02-18] MEDS: NOREPINEPHRINE 8 MG/250ML KIT 250 ML IV SCH (04:00)
[2021-02-18 04:59] LABS: Potassium 4.4 mmol/L (3.5-5.1)
[2021-02-18 05:07] LABS: BUN/Creatinine Ratio 59.6; Calcium 8.6 mg/dL (8.5-10.1)
[2021-02-18 05:12] LABS: Basophils # (auto) 0 10 ^3/uL (0-0.2); Basophils % (auto) 0.4 % (0.0-2.0); Eosinophils # (auto) 0 10 ^3/uL (0-0.8); Eosinophils % (auto) 0.4 % (0.0-7.0); Hematocrit 38.9 % (41.0-53.0); Lymphocytes # (auto) 0.7 10 ^3/uL (0.4-5.4); Lymphocytes % (auto) 9.6 % (10.0-50.0); Mean Corpuscular Hemoglobin 30.2 pg (28.0-32.0); Mean Corpuscular Hgb Conc. 33.3 g/dL (32.0-36.0); Mean Corpuscular Volume 90.6 fL (80.0-100.0); Monocytes # (auto) 0.4 10 ^3/uL (0-1.3); Monocytes % (auto) 5.4 % (0.0-12.0); Neutrophils # (auto) 6.1 10 ^3/uL (1.6-8.6); Neutrophils % (auto) 84.2 % (37.0-80.0); Nucleated Red Blood Cells % 0.1 %; Red Blood Cells 4.29 10^6/uL (4.5-5.90); Red Cell Distribution Width 13.3 % (11.8-14.3); White Blood Cell 7.3 10^3/uL (4.4-10.8)
[2021-02-18] MEDS: METOCLOPRAMIDE HCL 5MG/ml INJ 2ml VIAL IV SCH ×3 (05:59→21:50)
[2021-02-18] MEDS: SODIUM CHLORIDE 0.9% 1,000 ML IV SCH (08:30)
[2021-02-18] MEDS: DexAMETHasone SOD PHOS 10MG/1ML VIAL INJ IV SCH (10:02)
[2021-02-18] MEDS: ASPirin 81 mg TAB PO SCH (10:03)
[2021-02-18] MEDS: CHOLECALCIFEROL (VITD3) 2,000 UNIT CAP/TAB PO SCH (10:03)
[2021-02-18] MEDS: FAMOTIDINE (10MG/ML) 2ML VL IV SCH ×2 (10:03→21:50)
[2021-02-18] MEDS: SODIUM CHLOR 0.9% PF (SALINE LOCK) 10ML VIAL/SYR IV SCH ×2 (10:03→21:50)
[2021-02-18] MEDS: ZINC SULFATE 220mg CAP or TAB PO SCH (10:03)
[2021-02-18] MEDS: FUROSEMIDE 40 MG/4 ML VIAL IV SCH (10:03)
[2021-02-18] MEDS: ENOXAPARIN SOD 40 MG/0.4 ML SYRINGE SC SCH ×2 (10:04→21:50)
[2021-02-18] MEDS: fentaNYL Drip 2500mCg/250mlNS 250 ML IV SCH (11:30)
[2021-02-18] MEDS: PROPOFOL 100 ML IV SCH (11:30)
[2021-02-18] MEDS ORDERED: TPN PER PHARMACY 0 ML IV SCH (11:45)
[2021-02-18 12:03] LABS: Albumin 1.5 g/dL (3.4-5.0); Magnesium 2.8 mg/dL (1.6-2.6)
[2021-02-18 12:12] LABS: Bilirubin, Direct 0.2 mg/dL (0-0.2); Bilirubin, Total 0.7 mg/dL (0.2-1.0); Phosphorus 3.3 mg/dL (2.5-4.90); Pre Albumin 16.6 mg/dL (20.0-40.0)
[2021-02-18] MEDS: INSULIN LANTUS (GLARGINE) 1 /0.01ml (100units/ml) SC SCH ×2 (12:12→21:51)
[2021-02-18] MEDS ORDERED: DEXTROSE (50%) 50ML SYRG IV PRN (13:00)
[2021-02-18] MEDS: D5W 5% 1,000 ML IV SCH (13:44)
[2021-02-18] MEDS ORDERED: FREE WATER NG SCH (14:00)
[2021-02-18] MEDS ORDERED: ACCU-CHEK COMFORT CURVE STRIP VI SCH (18:00)
[2021-02-18] MEDS ORDERED: InsuLIN REG 1unit/0.01ml Soln (100units/ml) SC SCH (18:00)
[2021-02-18] MEDS ORDERED: TPN PER PHARMACY IV NR ×5 (20:00)
[2021-02-19] VITALS (104 sets, daily range): BP systolic 86–154; BP diastolic 52–87
[2021-02-19] MEDS ORDERED: DEXTROSE (50%) 50ML SYRG IV SCH
[2021-02-19] MEDS: fentaNYL Drip 2500mCg/250mlNS 250 ML IV SCH (01:30)
[2021-02-19] MEDS: MEROPENEM 1GM IVPB 100 ML IV SCH ×2 (02:00→14:24)
[2021-02-19] MEDS: NOREPINEPHRINE 8 MG/250ML KIT 250 ML IV SCH (04:00)
[2021-02-19] MEDS: MIDAZOLAM DRIP 50 mg/50mL 50 ML IV SCH ×7 (04:15→21:30)
[2021-02-19 04:32] LABS: Basophils # (auto) 0 10 ^3/uL (0-0.2); Basophils % (auto) 0.4 % (0.0-2.0); Eosinophils # (auto) 0 10 ^3/uL (0-0.8); Eosinophils % (auto) 0.6 % (0.0-7.0); Hemoglobin 12.6 g/dL (13.5-17.5); Lymphocytes # (auto) 0.7 10 ^3/uL (0.4-5.4); Lymphocytes % (auto) 11.3 % (10.0-50.0); Mean Corpuscular Hemoglobin 29.6 pg (28.0-32.0); Mean Corpuscular Hgb Conc. 32.4 g/dL (32.0-36.0); Mean Corpuscular Volume 91.2 fL (80.0-100.0); Monocytes # (auto) 0.4 10 ^3/uL (0-1.3); Neutrophils % (auto) 81.7 % (37.0-80.0); Nucleated Red Blood Cells % 0.1 %; Red Blood Cells 4.27 10^6/uL (4.5-5.90); Red Cell Distribution Width 13.7 % (11.8-14.3); White Blood Cell 6.2 10^3/uL (4.4-10.8)
[2021-02-19 04:52] LABS: Albumin 1.4 g/dL (3.4-5.0); BUN/Creatinine Ratio 70.2; Calcium 8.1 mg/dL (8.5-10.1); Potassium 4.3 mmol/L (3.5-5.1)
[2021-02-19 04:55] LABS: Bilirubin, Total 0.9 mg/dL (0.2-1.0); Total Protein 5.6 g/dL (6.4-8.2)
[2021-02-19] MEDS: ACCU-CHEK COMFORT CURVE STRIP VI SCH ×4 (05:33→17:51)
[2021-02-19] MEDS: METOCLOPRAMIDE HCL 5MG/ml INJ 2ml VIAL IV SCH ×3 (05:33→22:04)
[2021-02-19] MEDS: InsuLIN REG 1unit/0.01ml Soln (100units/ml) SC SCH ×4 (05:53→17:50)
[2021-02-19] MEDS: D5W 5% 1,000 ML IV SCH (09:15)
[2021-02-19 09:30] LABS: Magnesium 2.6 mg/dL (1.6-2.6); Phosphorus 3.5 mg/dL (2.5-4.90)
[2021-02-19] MEDS: ASPirin 81 mg TAB PO SCH (09:34)
[2021-02-19] MEDS: FAMOTIDINE (10MG/ML) 2ML VL IV SCH ×2 (09:34→22:04)
[2021-02-19] MEDS: SODIUM CHLOR 0.9% PF (SALINE LOCK) 10ML VIAL/SYR IV SCH ×2 (09:34→22:05)
[2021-02-19] MEDS: CHOLECALCIFEROL (VITD3) 2,000 UNIT CAP/TAB PO SCH (09:35)
[2021-02-19] MEDS: ZINC SULFATE 220mg CAP or TAB PO SCH (09:35)
[2021-02-19] MEDS: PROPOFOL 100 ML IV SCH (11:02)
[2021-02-19] MEDS: INSULIN LANTUS (GLARGINE) 1 /0.01ml (100units/ml) SC SCH ×2 (11:15→23:01)
[2021-02-19] MEDS: ENOXAPARIN SOD 40 MG/0.4 ML SYRINGE SC SCH ×2 (11:37→22:05)
[2021-02-19] MEDS ORDERED: TPN PER PHARMACY IV NR ×7 (20:00)
[2021-02-20] VITALS (104 sets, daily range): BP systolic 86–152; BP diastolic 49–88
[2021-02-20] MEDS: InsuLIN REG 1unit/0.01ml Soln (100units/ml) SC SCH ×4 (00:04→18:00)
[2021-02-20] MEDS: fentaNYL Drip 2500mCg/250mlNS 250 ML IV SCH ×2 (01:30→14:26)
[2021-02-20] MEDS: MIDAZOLAM DRIP 50 mg/50mL 50 ML IV SCH ×2 (01:30→08:36)
[2021-02-20] MEDS: MEROPENEM 1GM IVPB 100 ML IV SCH ×2 (02:00→14:19)
[2021-02-20 04:34] LABS: Basophils # (auto) 0 10 ^3/uL (0-0.2); Basophils % (auto) 0.4 % (0.0-2.0); Eosinophils # (auto) 0.1 10 ^3/uL (0-0.8); Eosinophils % (auto) 1.4 % (0.0-7.0); Hematocrit 39.4 % (41.0-53.0); Hemoglobin 12.7 g/dL (13.5-17.5); Lymphocytes # (auto) 0.8 10 ^3/uL (0.4-5.4); Lymphocytes % (auto) 11.8 % (10.0-50.0); Mean Corpuscular Hemoglobin 29.2 pg (28.0-32.0); Mean Corpuscular Hgb Conc. 32.2 g/dL (32.0-36.0); Mean Corpuscular Volume 90.6 fL (80.0-100.0); Monocytes # (auto) 0.2 10 ^3/uL (0-1.3); Monocytes % (auto) 3.5 % (0.0-12.0); Neutrophils # (auto) 5.5 10 ^3/uL (1.6-8.6); Neutrophils % (auto) 82.9 % (37.0-80.0); Red Blood Cells 4.35 10^6/uL (4.5-5.90); Red Cell Distribution Width 12.9 % (11.8-14.3); White Blood Cell 6.7 10^3/uL (4.4-10.8)
[2021-02-20 04:55] LABS: Potassium 3.5 mmol/L (3.5-5.1)
[2021-02-20 05:02] LABS: Albumin 1.5 g/dL (3.4-5.0); BUN/Creatinine Ratio 80.6; Bilirubin, Total 1.1 mg/dL (0.2-1.0); Calcium 7.7 mg/dL (8.5-10.1); Magnesium 2.2 mg/dL (1.6-2.6); Phosphorus 2.2 mg/dL (2.5-4.90); Total Protein 5.1 g/dL (6.4-8.2)
[2021-02-20] MEDS: METOCLOPRAMIDE HCL 5MG/ml INJ 2ml VIAL IV SCH ×3 (05:28→22:00)
[2021-02-20] MEDS: ACCU-CHEK COMFORT CURVE STRIP VI SCH ×4 (05:29→18:00)
[2021-02-20] MEDS ORDERED: POTASSIUM PHOSP 22MEQ(15MMOLE) in NS 100 ML IV ONE (08:45)
[2021-02-20] MEDS: INSULIN LANTUS (GLARGINE) 1 /0.01ml (100units/ml) SC SCH ×2 (10:00→22:00)
[2021-02-20] MEDS: FAMOTIDINE (10MG/ML) 2ML VL IV SCH ×2 (10:03→22:00)
[2021-02-20] MEDS: ZINC SULFATE 220mg CAP or TAB PO SCH (10:03)
[2021-02-20] MEDS: CHOLECALCIFEROL (VITD3) 2,000 UNIT CAP/TAB PO SCH (10:03)
[2021-02-20] MEDS: SODIUM CHLOR 0.9% PF (SALINE LOCK) 10ML VIAL/SYR IV SCH ×2 (10:03→22:00)
[2021-02-20] MEDS: ASPirin 81 mg TAB PO SCH (10:03)
[2021-02-20] MEDS: PROPOFOL 100 ML IV SCH (11:30)
[2021-02-20] MEDS: ENOXAPARIN SOD 60 MG/0.6 ML SYRINGE SC SCH ×2 (12:27→22:00)
[2021-02-20] MEDS ORDERED: FUROSEMIDE 20 MG/2 ML VIAL IV ONE (12:45)
[2021-02-20] MEDS: ACETAMINOPHEN 325 MG TAB PO PRN (18:52)
[2021-02-20] MEDS ORDERED: TPN PER PHARMACY IV NR ×7 (20:00)
[2021-02-21] VITALS (100 sets, daily range): BP systolic 71–197; BP diastolic 38–98
[2021-02-21] MEDS: ACCU-CHEK COMFORT CURVE STRIP VI SCH ×4 (00:24→12:00)
[2021-02-21] MEDS: hydrALAZINE HCL 20 MG/ML VL IV PRN (01:27)
[2021-02-21] MEDS: MEROPENEM 1GM IVPB 100 ML IV SCH ×2 (02:00→14:03)
[2021-02-21] MEDS: NOREPINEPHRINE 8 MG/250ML KIT 250 ML IV SCH ×2 (04:00→05:00)
[2021-02-21] MEDS: fentaNYL Drip 2500mCg/250mlNS 250 ML IV SCH ×2 (04:00→11:45)
[2021-02-21] MEDS: MIDAZOLAM DRIP 50 mg/50mL 50 ML IV SCH ×5 (04:00→22:44)
[2021-02-21 04:28] LABS: Basophils # (auto) 0 10 ^3/uL (0-0.2); Basophils % (auto) 0.4 % (0.0-2.0); Eosinophils # (auto) 0 10 ^3/uL (0-0.8); Eosinophils % (auto) 0.6 % (0.0-7.0); Hematocrit 40.5 % (41.0-53.0); Hemoglobin 13.5 g/dL (13.5-17.5); Lymphocytes # (auto) 0.7 10 ^3/uL (0.4-5.4); Mean Corpuscular Hgb Conc. 33.3 g/dL (32.0-36.0); Mean Corpuscular Volume 89.9 fL (80.0-100.0); Monocytes # (auto) 0.3 10 ^3/uL (0-1.3); Monocytes % (auto) 4.4 % (0.0-12.0); Neutrophils # (auto) 6.2 10 ^3/uL (1.6-8.6); Neutrophils % (auto) 84.6 % (37.0-80.0); Red Cell Distribution Width 13.2 % (11.8-14.3); White Blood Cell 7.3 10^3/uL (4.4-10.8)
[2021-02-21 04:54] LABS: Albumin 1.6 g/dL (3.4-5.0); Calcium 7.5 mg/dL (8.5-10.1); Potassium 3.8 mmol/L (3.5-5.1)
[2021-02-21 04:57] LABS: BUN/Creatinine Ratio 71.9; Bilirubin, Total 1.4 mg/dL (0.2-1.0); Phosphorus 2.7 mg/dL (2.5-4.90); Total Protein 5.4 g/dL (6.4-8.2)
[2021-02-21] MEDS: METOCLOPRAMIDE HCL 5MG/ml INJ 2ml VIAL IV SCH ×3 (06:00→22:00)
[2021-02-21] MEDS: InsuLIN REG 1unit/0.01ml Soln (100units/ml) SC SCH ×4 (06:00→23:58)
[2021-02-21] MEDS: ENOXAPARIN SOD 40 MG/0.4 ML SYRINGE SC SCH ×2 (09:55→22:00)
[2021-02-21] MEDS: CHOLECALCIFEROL (VITD3) 2,000 UNIT CAP/TAB PO SCH (09:55)
[2021-02-21] MEDS: ZINC SULFATE 220mg CAP or TAB PO SCH (09:55)
[2021-02-21] MEDS: ASPirin 81 mg TAB PO SCH (09:55)
[2021-02-21] MEDS: FAMOTIDINE (10MG/ML) 2ML VL IV SCH ×2 (09:55→22:00)
[2021-02-21] MEDS: SODIUM CHLOR 0.9% PF (SALINE LOCK) 10ML VIAL/SYR IV SCH ×2 (10:00→22:00)
[2021-02-21] MEDS: INSULIN LANTUS (GLARGINE) 1 /0.01ml (100units/ml) SC SCH ×2 (10:00→22:00)
[2021-02-21] MEDS ORDERED: FUROSEMIDE 20 MG/2 ML VIAL IV ONE ×2 (11:15→12:00)
[2021-02-21] MEDS: PROPOFOL 100 ML IV SCH (11:30)
[2021-02-21] MEDS ORDERED: TPN PER PHARMACY IV NR ×8 (20:00)
[2021-02-22] VITALS (106 sets, daily range): BP systolic 80–192; BP diastolic 50–97
[2021-02-22] MEDS: MEROPENEM 1GM IVPB 100 ML IV SCH (01:40)
[2021-02-22] MEDS: MIDAZOLAM DRIP 50 mg/50mL 50 ML IV SCH ×7 (02:00→22:30)
[2021-02-22 05:16] LABS: Albumin 1.2 g/dL (3.4-5.0); Magnesium 1.6 mg/dL (1.6-2.6); Potassium 3.2 mmol/L (3.5-5.1)
[2021-02-22 05:19] LABS: BUN/Creatinine Ratio 85.7; Bilirubin, Total 1.2 mg/dL (0.2-1.0); Phosphorus 3.6 mg/dL (2.5-4.90)
[2021-02-22 05:30] LABS: Calcium 5.8 mg/dL (8.5-10.1)
[2021-02-22] MEDS: METOCLOPRAMIDE HCL 5MG/ml INJ 2ml VIAL IV SCH ×3 (05:46→22:00)
[2021-02-22] MEDS: ACCU-CHEK COMFORT CURVE STRIP VI SCH ×4 (05:46→18:11)
[2021-02-22] MEDS: InsuLIN REG 1unit/0.01ml Soln (100units/ml) SC SCH ×3 (05:50→18:11)
[2021-02-22] MEDS: SODIUM CHLOR 0.9% PF (SALINE LOCK) 10ML VIAL/SYR IV SCH ×2 (10:31→22:00)
[2021-02-22] MEDS: FAMOTIDINE (10MG/ML) 2ML VL IV SCH ×2 (10:31→22:00)
[2021-02-22] MEDS: FUROSEMIDE 20 MG/2 ML VIAL IV SCH (10:31)
[2021-02-22] MEDS: ASPirin 81 mg TAB PO SCH (10:32)
[2021-02-22] MEDS: ZINC SULFATE 220mg CAP or TAB PO SCH (10:33)
[2021-02-22] MEDS: CHOLECALCIFEROL (VITD3) 2,000 UNIT CAP/TAB PO SCH (10:34)
[2021-02-22] MEDS: INSULIN LANTUS (GLARGINE) 1 /0.01ml (100units/ml) SC SCH ×2 (10:44→22:00)
[2021-02-22] MEDS: ENOXAPARIN SOD 40 MG/0.4 ML SYRINGE SC SCH ×2 (10:44→22:00)
[2021-02-22] MEDS: PROPOFOL 100 ML IV SCH (11:30)
[2021-02-22] MEDS: D5W 5% 1,000 ML IV SCH (12:23)
[2021-02-22] MEDS: MAGNESIUM SULFATE 1GM/100ML 100 ML IV SCH ×2 (12:23→13:53)
[2021-02-22] MEDS ORDERED: CALCIUM GLUC 1,000mg/50ml-NS 50 ML IV ONE (13:00)
[2021-02-22] MEDS ORDERED: POTASSIUM PHOSPHATE 22 MEQ in SODIUM CHL 0.9% 100 ML IV ONE (14:00)
[2021-02-22] MEDS: fentaNYL Drip 2500mCg/250mlNS 250 ML IV SCH ×2 (16:15)
[2021-02-22] MEDS ORDERED: TPN PER PHARMACY IV NR ×9 (20:00)
[2021-02-23] VITALS (102 sets, daily range): BP systolic 96–149; BP diastolic 50–81
[2021-02-23] MEDS: D5W 5% 1,000 ML IV SCH (00:05)
[2021-02-23] MEDS: fentaNYL Drip 2500mCg/250mlNS 250 ML IV SCH ×2 (02:33→15:30)
[2021-02-23 04:18] LABS: Albumin 1.6 g/dL (3.4-5.0); BUN/Creatinine Ratio 75.5; Calcium 7.2 mg/dL (8.5-10.1); Magnesium 2.1 mg/dL (1.6-2.6); Potassium 4.1 mmol/L (3.5-5.1)
[2021-02-23 04:21] LABS: Bilirubin, Total 1.4 mg/dL (0.2-1.0); Phosphorus 2.2 mg/dL (2.5-4.90)
[2021-02-23] MEDS: METOCLOPRAMIDE HCL 5MG/ml INJ 2ml VIAL IV SCH ×3 (06:00→22:29)
[2021-02-23] MEDS: InsuLIN REG 1unit/0.01ml Soln (100units/ml) SC SCH ×4 (06:00→18:15)
[2021-02-23] MEDS: ACCU-CHEK COMFORT CURVE STRIP VI SCH ×4 (06:00→18:15)
[2021-02-23] MEDS: MIDAZOLAM DRIP 50 mg/50mL 50 ML IV SCH ×5 (08:15→23:21)
[2021-02-23] MEDS: FUROSEMIDE 20 MG/2 ML VIAL IV SCH (09:55)
[2021-02-23] MEDS: SODIUM CHLOR 0.9% PF (SALINE LOCK) 10ML VIAL/SYR IV SCH ×2 (09:55→22:29)
[2021-02-23] MEDS: FAMOTIDINE (10MG/ML) 2ML VL IV SCH ×2 (09:55→22:28)
[2021-02-23] MEDS: ZINC SULFATE 220mg CAP or TAB PO SCH (09:56)
[2021-02-23] MEDS: CHOLECALCIFEROL (VITD3) 2,000 UNIT CAP/TAB PO SCH (09:56)
[2021-02-23] MEDS: ASPirin 81 mg TAB PO SCH (09:56)
[2021-02-23] MEDS: INSULIN LANTUS (GLARGINE) 1 /0.01ml (100units/ml) SC SCH ×2 (09:56→22:30)
[2021-02-23] MEDS: ENOXAPARIN SOD 40 MG/0.4 ML SYRINGE SC SCH ×2 (09:57→22:30)
[2021-02-23] MEDS: PROPOFOL 100 ML IV SCH (11:30)
[2021-02-23] MEDS ORDERED: POTASSIUM PHOSPHATE 22 MEQ in SODIUM CHL 0.9% 100 ML IV ONE (14:00)
[2021-02-23] MEDS: NOREPINEPHRINE 8 MG/250ML KIT 250 ML IV SCH (19:30)
[2021-02-23] MEDS: TPN PER PHARMACY IV NR ×9 (20:00)
[2021-02-24] VITALS (85 sets, daily range): BP systolic 61–177; BP diastolic 20–90
[2021-02-24] MEDS: MIDAZOLAM DRIP 50 mg/50mL 50 ML IV SCH ×4 (02:30→13:50)
[2021-02-24] MEDS: PROPOFOL 100 ML IV SCH ×3 (03:53→16:30)
[2021-02-24] MEDS: fentaNYL Drip 2500mCg/250mlNS 250 ML IV SCH ×2 (04:00→16:30)
[2021-02-24 05:00] LABS: Basophils # (auto) 0 10 ^3/uL (0-0.2); Basophils % (auto) 0.4 % (0.0-2.0); Eosinophils # (auto) 0.1 10 ^3/uL (0-0.8); Hemoglobin 12.9 g/dL (13.5-17.5); Lymphocytes # (auto) 0.6 10 ^3/uL (0.4-5.4); Lymphocytes % (auto) 5.6 % (10.0-50.0); Mean Corpuscular Hemoglobin 29.6 pg (28.0-32.0); Mean Corpuscular Hgb Conc. 33.2 g/dL (32.0-36.0); Mean Corpuscular Volume 89.4 fL (80.0-100.0); Monocytes # (auto) 0.7 10 ^3/uL (0-1.3); Monocytes % (auto) 6.2 % (0.0-12.0); Neutrophils # (auto) 9.5 10 ^3/uL (1.6-8.6); Neutrophils % (auto) 86.8 % (37.0-80.0); Nucleated Red Blood Cells % 0.1 %; Red Blood Cells 4.37 10^6/uL (4.5-5.90); Red Cell Distribution Width 13.2 % (11.8-14.3)
[2021-02-24 05:23] LABS: INR 1.55 (0.9-1.15); Partial Thromboplastin Time 44.7 sec (23.6-33.0)
[2021-02-24 05:55] LABS: Potassium 4.8 mmol/L (3.5-5.1)
[2021-02-24] MEDS: ACCU-CHEK COMFORT CURVE STRIP VI SCH ×4 (06:00→18:00)
[2021-02-24] MEDS: InsuLIN REG 1unit/0.01ml Soln (100units/ml) SC SCH ×4 (06:00→18:00)
[2021-02-24] MEDS: METOCLOPRAMIDE HCL 5MG/ml INJ 2ml VIAL IV SCH ×3 (06:00→21:42)
[2021-02-24 06:02] LABS: Albumin 1.8 g/dL (3.4-5.0); BUN/Creatinine Ratio 78.3; Bilirubin, Total 1.1 mg/dL (0.2-1.0); Calcium 7.5 mg/dL (8.5-10.1); Magnesium 2.1 mg/dL (1.6-2.6); Phosphorus 3.1 mg/dL (2.5-4.90); Total Protein 5.6 g/dL (6.4-8.2)
[2021-02-24] MEDS: FAMOTIDINE (10MG/ML) 2ML VL IV SCH ×2 (11:06→21:43)
[2021-02-24] MEDS: ASPirin 81 mg TAB PO SCH (11:06)
[2021-02-24] MEDS: FUROSEMIDE 20 MG/2 ML VIAL IV SCH (11:06)
[2021-02-24] MEDS: SODIUM CHLOR 0.9% PF (SALINE LOCK) 10ML VIAL/SYR IV SCH ×2 (11:06→21:42)
[2021-02-24] MEDS: ZINC SULFATE 220mg CAP or TAB PO SCH (11:07)
[2021-02-24] MEDS: ENOXAPARIN SOD 40 MG/0.4 ML SYRINGE SC SCH ×2 (11:07→21:42)
[2021-02-24] MEDS: CHOLECALCIFEROL (VITD3) 2,000 UNIT CAP/TAB PO SCH (11:07)
[2021-02-24] MEDS: INSULIN LANTUS (GLARGINE) 1 /0.01ml (100units/ml) SC SCH ×2 (11:33→22:00)
[2021-02-24] MEDS: PHENYLEPHRINE IV 250 ML IV SCH (18:10)
[2021-02-24] MEDS ORDERED: SODIUM BICARBONATE 8.4% INJ 50ML SYRINGE ONE (18:25)
[2021-02-24] MEDS ORDERED: SODIUM BICARBONATE 8.4 % INJ 50ML VIAL IV ONE (18:30)
[2021-02-24] MEDS: TPN PER PHARMACY IV NR ×17 (19:59→20:00)
[2021-02-24] MEDS: NOREPINEPHRINE 8 MG/250ML KIT 250 ML IV SCH (20:00)
[2021-02-25] VITALS (68 sets, daily range): BP systolic 68–157; BP diastolic 33–83
[2021-02-25] MEDS: PHENYLEPHRINE IV 250 ML IV SCH ×3 (02:05→10:45)
[2021-02-25 02:13] LABS: Basophils # (auto) 0.2 10 ^3/uL (0-0.2); Basophils % (auto) 1.2 % (0.0-2.0); Eosinophils # (auto) 0 10 ^3/uL (0-0.8); Eosinophils % (auto) 0.1 % (0.0-7.0); Hematocrit 32.6 % (41.0-53.0); Hemoglobin 11.2 g/dL (13.5-17.5); Lymphocytes # (auto) 0.9 10 ^3/uL (0.4-5.4); Lymphocytes % (auto) 5.3 % (10.0-50.0); Mean Corpuscular Hgb Conc. 34.2 g/dL (32.0-36.0); Mean Corpuscular Volume 90.6 fL (80.0-100.0); Monocytes # (auto) 0.5 10 ^3/uL (0-1.3); Monocytes % (auto) 2.8 % (0.0-12.0); Neutrophils % (auto) 90.6 % (37.0-80.0); Red Cell Distribution Width 13.4 % (11.8-14.3); White Blood Cell 17.7 10^3/uL (4.4-10.8)
[2021-02-25 02:33] LABS: Albumin 1.2 g/dL (3.4-5.0); Magnesium 1.9 mg/dL (1.6-2.6); Potassium 4.7 mmol/L (3.5-5.1)
[2021-02-25 02:36] LABS: BUN/Creatinine Ratio 69.5; Phosphorus 3.6 mg/dL (2.5-4.90)
[2021-02-25 02:41] LABS: Bilirubin, Total 1.1 mg/dL (0.2-1.0); Total Protein 4.4 g/dL (6.4-8.2)
[2021-02-25 02:51] LABS: Calcium 5.7 mg/dL (8.5-10.1)
[2021-02-25] MEDS ORDERED: CALCIUM GLUC 1,000mg/50ml-NS 100 ML IV ONE (03:54)
[2021-02-25] MEDS ORDERED: CALCIUM GLUC 1,000mg/50ml-NS 50 ML IV ONE ×2 (04:00)
[2021-02-25 05:32] LABS: INR 1.46 (0.9-1.15); Partial Thromboplastin Time 42.1 sec (23.6-33.0)
[2021-02-25] MEDS: ACCU-CHEK COMFORT CURVE STRIP VI SCH ×5 (05:43→23:40)
[2021-02-25] MEDS: METOCLOPRAMIDE HCL 5MG/ml INJ 2ml VIAL IV SCH ×3 (05:43→21:27)
[2021-02-25 05:44] LABS: Pre Albumin 14.3 mg/dL (20.0-40.0)
[2021-02-25] MEDS: InsuLIN REG 1unit/0.01ml Soln (100units/ml) SC SCH ×5 (05:44→23:41)
[2021-02-25] MEDS: PROPOFOL 100 ML IV SCH ×3 (09:00→15:23)
[2021-02-25] MEDS: MIDAZOLAM DRIP 50 mg/50mL 50 ML IV SCH ×3 (09:30→17:09)
[2021-02-25] MEDS: ASPirin 81 mg TAB PO SCH (10:00)
[2021-02-25] MEDS: CHOLECALCIFEROL (VITD3) 2,000 UNIT CAP/TAB PO SCH (10:00)
[2021-02-25] MEDS: ZINC SULFATE 220mg CAP or TAB PO SCH (10:00)
[2021-02-25] MEDS: FAMOTIDINE (10MG/ML) 2ML VL IV SCH ×2 (10:09→21:27)
[2021-02-25] MEDS: FUROSEMIDE 20 MG/2 ML VIAL IV SCH (10:09)
[2021-02-25] MEDS: SODIUM CHLOR 0.9% PF (SALINE LOCK) 10ML VIAL/SYR IV SCH ×2 (10:09→21:26)
[2021-02-25] MEDS: ENOXAPARIN SOD 40 MG/0.4 ML SYRINGE SC SCH (10:10)
[2021-02-25] MEDS ORDERED: PHENYLEPHRINE INJ 80 MG in SODIUM CHL 0.9% 242 ML IV SCH (10:45)
[2021-02-25] MEDS: fentaNYL Drip 2500mCg/250mlNS 250 ML IV SCH ×2 (11:30→15:11)
[2021-02-25] MEDS ORDERED: levoFLOXacin 750MG 150 ML IV ONE (12:30)
[2021-02-25] MEDS: INSULIN LANTUS (GLARGINE) 1 /0.01ml (100units/ml) SC SCH ×2 (12:45→21:24)
[2021-02-25 14:23] LABS: Lactic Acid w/Reflex 5.7 mmol/L (0.4-2.0)
[2021-02-25 15:18] LABS: CRP High Sensitivity 2.99 mg/dL (< 0.3)
[2021-02-25] MEDS: NOREPINEPHRINE 8 MG/250ML KIT 250 ML IV SCH ×2 (15:55→19:30)
[2021-02-25] MEDS: TPN PER PHARMACY IV NR ×8 (19:38)
[2021-02-25] MEDS ORDERED: TPN PER PHARMACY IV NR ×9 (20:00)
[2021-02-25] MEDS ORDERED: ENOXAPARIN SOD 100 MG/1 ML SYRINGE SC SCH (22:00)
[2021-02-26] VITALS (13 sets, daily range): BP systolic 91–160; BP diastolic 12–71
[2021-02-26] MEDS ORDERED: VASOPRESSIN 50 UNITS in D5W 5% 247.5 ML IV SCH (00:45)
[2021-02-26] MEDS ORDERED: VASOPRESSIN 20 UNIT/ML ONE ×2 (01:25→01:32)
[2021-02-26 02:20] LABS: Hematocrit 36.9 % (41.0-53.0); Hemoglobin 12.4 g/dL (13.5-17.5); Mean Corpuscular Hemoglobin 30.5 pg (28.0-32.0); Mean Corpuscular Hgb Conc. 33.7 g/dL (32.0-36.0); Mean Corpuscular Volume 90.4 fL (80.0-100.0); Red Blood Cells 4.08 10^6/uL (4.5-5.90); Red Cell Distribution Width 13.5 % (11.8-14.3); White Blood Cell 15.7 10^3/uL (4.4-10.8)
[2021-02-26 02:36] LABS: Basophils % (manual) 0 (0.0-2.0); Blast Cells 0; Metamyelocytes % 0; Promyelocytes % 0; Reactive Lymphocytes 0
[2021-02-26 02:40] LABS: Potassium 5.4 mmol/L (3.5-5.1)
[2021-02-26 02:44] LABS: Albumin 1.5 g/dL (3.4-5.0); BUN/Creatinine Ratio 56.7; Magnesium 2.4 mg/dL (1.6-2.6)
[2021-02-26 03:06] LABS: Bilirubin, Total 0.8 mg/dL (0.2-1.0); Total Protein 5.1 g/dL (6.4-8.2)
[2021-02-26 03:25] LABS: Band Neutrophils % (manual) 12; Eosinophils % (manual) 1 (0-7); Lymphocytes % (manual) 11 (10.0-50.0); Monocytes % (manual) 11 (0-12); Myelocytes % 5
[2021-02-26] MEDS: ACCU-CHEK COMFORT CURVE STRIP VI SCH (05:01)
[2021-02-26] MEDS: InsuLIN REG 1unit/0.01ml Soln (100units/ml) SC SCH (05:02)
[2021-02-26] MEDS: METOCLOPRAMIDE HCL 5MG/ml INJ 2ml VIAL IV SCH (05:06)
[2021-02-26] MEDS ORDERED: AMINO ACID INFUSION IN D10W 1,000 ML IV NR (09:00)
[2021-02-26] MEDS: PROPOFOL 100 ML IV SCH (09:30)
[2021-02-26] MEDS ORDERED: EPINEPHrine HCL 250 ML IV ONE (09:45)
[2021-02-26] MEDS ORDERED: levoFLOXacin 750MG 150 ML IV SCH (10:00)
[2021-02-26] MEDS: MIDAZOLAM DRIP 50 mg/50mL 50 ML IV SCH (10:00)
[2021-02-26] MEDS ORDERED: PANTOPRAZOLE 40 MG/10 ML VIAL INJ IV SCH (10:00)
[2021-02-26] MEDS: NOREPINEPHRINE 8 MG/250ML KIT 250 ML IV SCH (11:05)
[2021-02-26] MEDS ORDERED: EPINEPHrine HCL 1 MG/10 ML SYRG IV ONE (11:21)
[2021-02-26] MEDS ORDERED: SODIUM BICARBONATE 8.4% INJ 50ML SYRINGE IV ONE (11:21)
[2021-02-26] MEDS ORDERED: TPN PER PHARMACY IV NR ×7 (20:00)
== END 2021-02-26 11:22 | DRG 720 ==
LOC: EDBD 13:32 → ER 13:32 → TELE 15:13 → TELE-EAST 17:00 → EAST 02-12 15:45 → DOU IN ADS 02-12 19:01 → EAST 02-12 19:07 → DOU IN ADS 02-12 19:09 → TELE-E-ADS 02-13 02:33 → EAST 02-13 07:55 → DOU IN ADS 02-13 07:58 → ICU WEST 02-13 11:20
PROVIDERS: ADMIT Hospitalist; ATTEND Internal Medicine Pulmonary Disease
PROC: XW033E5 Introduction of Remdesivir Anti-infective into Peripheral Vein, Percutaneous Approach, New Technology Group 5 (ICD-10-PCS; 2021-02-08)
PROC: 5A1955Z Respiratory Ventilation, Greater than 96 Consecutive Hours (ICD-10-PCS; principal; 2021-02-13)
PROC: 0BH17EZ Insertion of Endotracheal Airway into Trachea, Via Natural or Artificial Opening (ICD-10-PCS; 2021-02-13)
PROC: 02HV33Z Insertion of Infusion Device into Superior Vena Cava, Percutaneous Approach (ICD-10-PCS; 2021-02-13)
PROC: B548ZZA Ultrasonography of Superior Vena Cava, Guidance (ICD-10-PCS; 2021-02-13)
PROC: XW033H5 Introduction of Tocilizumab into Peripheral Vein, Percutaneous Approach, New Technology Group 5 (ICD-10-PCS; 2021-02-15)
PROC: 5A12012 Performance of Cardiac Output, Single, Manual (ICD-10-PCS; 2021-02-26)
DX: A41.9 Sepsis, unspecified organism (principal); N17.0 Acute kidney failure with tubular necrosis; J96.01 Acute respiratory failure with hypoxia; J12.82 Pneumonia due to coronavirus disease 2019; R65.21 Severe sepsis with septic shock; E43 Unspecified severe protein-calorie malnutrition; U07.1 COVID-19; D89.839 Cytokine release syndrome, grade unspecified; E86.0 Dehydration; J44.0 Chronic obstructive pulmonary disease with (acute) lower respiratory infection; E66.9 Obesity, unspecified; E11.65 Type 2 diabetes mellitus with hyperglycemia; E87.0 Hyperosmolality and hypernatremia; E87.6 Hypokalemia; I46.9 Cardiac arrest, cause unspecified; Z66 Do not resuscitate; E78.5 Hyperlipidemia, unspecified; F17.200 Nicotine dependence, unspecified, uncomplicated; J98.2 Interstitial emphysema; E11.21 Type 2 diabetes mellitus with diabetic nephropathy; E11.40 Type 2 diabetes mellitus with diabetic neuropathy, unspecified; C80.1 Malignant (primary) neoplasm, unspecified; E11.22 Type 2 diabetes mellitus with diabetic chronic kidney disease; N18.9 Chronic kidney disease, unspecified; I12.9 Hypertensive chronic kidney disease with stage 1 through stage 4 chronic kidney disease, or unspecified chronic kidney disease; K76.0 Fatty (change of) liver, not elsewhere classified; T38.0X5A Adverse effect of glucocorticoids and synthetic analogues, initial encounter; E87.5 Hyperkalemia; Z68.26 Body mass index [BMI] 26.0-26.9, adult; Y92.89 Other specified places as the place of occurrence of the external cause; Z83.3 Family history of diabetes mellitus; E83.42 Hypomagnesemia; K75.81 Nonalcoholic steatohepatitis (NASH)
CPT/HCPCS: 36415; 36569; 36600; 71045; 74018; 76775; 80048; 80053; 80076; 80307; 81001; 82040; 82306; 82550; 82728; 82805; 82962; 83036; 83605; 83615; 83735; 83880; 84100; 84153; 84443; 84478; 84484; 85007; 85025; 85027; 85379; 85610; 85730; 86141; 87040; 87070; 87077; 87086; 87186; 87205; 87426; 92950; 93005; 93306; 93970; 94002; 94003; 94640; 96365; 96375; 99291; G0378; J0171; J1100; J1815; J1956; J2185; J2250; J2704; J3490; J7060; J7131